=== PATIENT | female | born 1955 | race Caucasian/White ===

== ENCOUNTER 2017-05-18 10:07 | Emergency (ER) | payer MEDICAID ==
--- NOTE | 2017-05-18 10:39 | ER Document Report ---
HPI - HPI Pain Level: 2 Context: 61 yo female c/o sore throat since this morning. woke up with sore throat. grandson has cough and sore throat. no fever, no cough, mild headache. Associated Symptoms: Body/muscle aches, Nonproductive cough - mild, Headache - mild, Rhinnorhea, Sore throat. denies: Chills, Earache, Fever, Hurts to breath , Nausea, Vomiting, Sinus pain/drainage, Shortness of breath Exacerbated by: Denies Relieved by: Denies Similar symptoms previously: Yes Recently seen / treated by doctor: No - PCM [facility] - ROS Systems Reviewed and Negative: Yes All other systems reviewed and negative - CONSTITUTIONAL Constitutional: DENIES: Fever, Chills - EENT EENT: REPORTS: Sore Throat - NEURO Neurology: REPORTS: Headache - RESPIRATORY Respiratory: REPORTS: Coughing Past Medical History - General Information source: Patient - Social History Smoking Status: Never Smoker Chew tobacco use (# tins/day): No Frequency of alcohol use: None Drug Abuse: None Lives with: Family Family History: Reviewed & Not Pertinent Patient has suicidal ideation: No Patient has homicidal ideation: No Endocrine Medical History: Reports: Hx Diabetes Mellitus Type 2 Renal/ Medical History: Denies: Hx Peritoneal Dialysis Past Surgical History: Reports: Hx Breast Surgery, Hx Cholecystectomy, Hx Gynecologic Surgery - fallopian tubes removed, Hx Oral Surgery - teeth removed Vertical Provider Document - CONSTITUTIONAL Agree With Documented VS: Yes Exam Limitations: No Limitations - INFECTION CONTROL TRAVEL OUTSIDE OF THE [place] IN LAST 30 DAYS: No - HEENT HEENT: Atraumatic, PERRLA, Pharyngeal Erythema - OP mildly injected. no exudate. no edema. - NECK Neck: Normal Inspection, Supple - RESPIRATORY Respiratory: Breath Sounds Normal, No Respiratory Distress O2 Sat by Pulse Oximetry: 95 - CARDIOVASCULAR Cardiovascular: Regular Rate, Regular Rhythm - NEURO Level of Consciousness: Awake, Alert, Appropriate - DERM Integumentary: Warm, Dry, No Rash Course - Re-evaluation Re-evalutation: 05/18/17 10:38 H&P c/w simple URI. no s/s peritonsillar abscess or sepsis, no airway compromise 05/18/17 11:09 pt stable for discharge - Vital Signs Vital signs: Temp Pulse Resp BP Pulse Ox 98.8 F 98 16 126/86 H 95 05/18/17 10:12 05/18/17 10:12 05/18/17 10:12 05/18/17 10:12 05/18/17 10:12 Discharge - Discharge Clinical Impression: URI (upper respiratory infection) Qualifiers: URI type: unspecified viral URI Qualified Code(s): J06.9 - Acute upper respiratory infection, unspecified Condition: Stable Disposition: HOME, SELF-CARE Instructions: Acetaminophen, Fever ([facility]), Upper Respiratory Illness ([facility]), Viral Syndrome ([facility]) Additional Instructions: You have a viral upper respiratory illness Symptomatic support followup with primary care if symptoms persist more than 10 days
[2017-05-18 11:36] VITALS: BP 125/79
== END 2017-05-18 11:34 | disposition home or self-care (01) ==
LOC: ER 10:07
DX: J06.9 Acute upper respiratory infection, unspecified (principal); J02.9 Acute pharyngitis, unspecified; R05 Cough; M79.1 Myalgia; R51 Headache; J34.89 Other specified disorders of nose and nasal sinuses
CPT/HCPCS: 99282

== ENCOUNTER → 2017-08-11 | Outpatient (CLI) | payer MEDICAID ==
[~2017-08-11] MED LIST: REGADENOSON INJ 0.4 MG/5 ML DISP.SYRIN IV ONE
--- NOTE | 2017-08-11 18:35 | DRAGON STRESS TEST REPORT ---
INTRAVENOUS LEXISCAN CARDIOLITE STRESS TEST USING SINGLE PHOTON EMMISION COMPUTERIZED TOMOGRAPHIC. DATE OF PROCEDURE: August 11, 2017, INDICATION : Chest pain CARDIAC RISK FACTORS: Diabetes, hypertension, dyslipidemia RESTING EKG: Sinus rhythm, no baseline ST-T wave changes are noted. STRESS EKG: No significant ST segment changes noted with LexiScan bolus REASON FOR TERMINATION: Protocol. PROCEDURE REPORT: Baseline heart rate 104 beats per minute with blood pressure of 110/69. Patient had no significant complaints. Patient was bolused with Lexiscan 0.4 mg intravenously followed by saline bolus. Heart rate at 2 minutes post bolus 137 with a blood pressure of 106/58. 3 minutes post bolus heart rate 134 with blood pressure of 197/55. No significant EKG changes were noted. Patient had no significant complaints during the procedure or postprocedure. Patient injected with Aminophyllin 75 mg at 3 minutes or later after Lexiscan bolus. CONCLUSIONS: Normal EKG and hemodynamic response to IV LexiScan. NUCLEAR DATA: At rest the patient was given 12.78 millicuries of technetium 99 sestamibi injected intravenously. As per protocol rest gated SPECT images were obtained. On day of stress test, the patient was given intravenous LexiScan at a dose of 0.4 mg in 5 mL intravenously, followed by flush with normal saline. Subsequently the stress dose of 36.5 millicuries of technetium 99 sestamibi was injected intravenously. As per protocol stress gated images were obtained. NUCLEAR INTERPRETATION: Both raw and processed data were used for interpretation. Visual, qualitative, computer-generated quantitative data was used. There was good myocardial uptake of technetium compound. Motion artifact and soft tissue attenuations were noted. Increased visceral uptake was noted. There was significant visceral contamination causing difficulty in interpreting inferior wall perfusion. No definitive areas of transient perfusion defect noted, No definitive areas of fixed perfusion defect or scars noted. EKG gated imaging showed LV EF at 62 %, rest and stress gated EF similar visually. T. I D. ratio was 1.09. Lung heart ratio noted to be within normal limits 0.27. No significant extracardiac and abnormal radiotracer activities were noted. RV free wall uptake was noted to be WNL. IMPRESSION: Also refer to comments under nuclear interpretation. Also test results needs to be interpreted in the context of pretest probability. 1. No definitive areas of transient perfusion defect noted. 2. No definite fixed defect noted. Mild fixed decreased uptake/count noted in the basal inferior wall in computer-generated images, however this is felt to be artifactual and mostly related to diaphragmatic attenuation artifact and contamination from increased visceral uptake. 3. EKG gated imaging shows left ventricular ejection fraction of approx. 62 %. 4. Clinical correlation requested as occasionally single vessel disease or balanced ischemia could be missed. In approximately 10% of the cases Lexiscan may not cause adequate vasodilatory stress. RECOMMENDATIONS: Aggressive risk factor modification and medical management. Further evaluation may be needed if continued symptoms or other high risk indicators are noted on clinical evaluation. Close cardiology follow-up is also recommended. Clinical correlation with echocardiogram derived ejection fraction. Inability to exercise by itself can lead to increased cardiovascular event risks. Consider cardiology consultation and or follow-up if clinically indicated. I am available for cardiology evaluation and consultation if requested by the learning disabilities teacher, unless patient already has a correspondence specialist. MARCELO
== END ==
LOC: RAD 08:39
PROVIDERS: ATTEND Family Medicine
DX: R07.9 Chest pain, unspecified (principal); E11.9 Type 2 diabetes mellitus without complications; I10 Essential (primary) hypertension; E78.5 Hyperlipidemia, unspecified
CPT/HCPCS: 93017; 78452; A9500; J2785; Q9969

== ENCOUNTER 2018-03-26 16:15 | Emergency (ER) | payer MEDICAID ==
[2018-03-26 18:59] LABS: ABSOLUTE BASOPHILS # (AUTO) 0.1 10^3/uL (0.0-0.2); ABSOLUTE EOSINOPHILS # (AUTO) 0.2 10^3/uL (0.0-0.6); ABSOLUTE LYMPHOCYTES (AUTO) 2.3 10^3/uL (0.5-4.7); ABSOLUTE MONOCYTES (AUTO) 0.6 10^3/uL (0.1-1.4); ABSOLUTE NEUT (AUTO) 4.2 10^3/uL (1.7-8.2); BASOPHILS % (AUTO) 0.8 % (0-2); EOSINOPHILS % (AUTO) 2.8 % (0-6); HEMOGLOBIN 15.9 g/dL (12.0-15.5); LYMPHOCYTES % (AUTO) 31.7 % (13-45); MEAN CORPUSCULAR HGB CONC 33.9 g/dL (32.0-36.0); MEAN CORPUSCULAR VOLUME 91 fl (80-97); MONOCYTES % (AUTO) 7.6 % (3-13); PLATELET COUNT 170 10^3/uL (150-450); RED BLOOD COUNT 5.14 10^6/uL (3.72-5.28); RED CELL DISTRIBUTION WIDTH 13.5 % (11.5-14.0); SEGMENTED NEUTROPHILS % (AUTO) 57.1 % (42-78); TOTAL CELLS COUNTED % (AUTO) 100 %; WHITE BLOOD COUNT 7.3 10^3/uL (4.0-10.5)
[2018-03-26 19:06] LABS: ALANINE AMINOTRANSFERASE 96 U/L (9-52); ALBUMIN 3.8 g/dL (3.5-5.0); ALKALINE PHOSPHATASE 69 U/L (38-126); ASPARTATE AMINO TRANSFERASE 206 U/L (14-36); BILIRUBIN,DIRECT 0.6 mg/dL (0.0-0.4); BLOOD UREA NITROGEN 29 mg/dL (7-20); CALCIUM 9.6 mg/dL (8.4-10.2); CREATINE KINASE 167 U/L (30-135); GLUCOSE 108 mg/dL (75-110); POTASSIUM 4.5 mmol/L (3.6-5.0); TOTAL PROTEIN 6.5 g/dL (6.3-8.2)
[2018-03-26 19:11] LABS: ANION GAP 5 (5-19); CARBON DIOXIDE 29 mmol/L (22-30); CHLORIDE 106 mmol/L (98-107); SODIUM 139.6 mmol/L (137-145)
[2018-03-26 19:24] LABS: TROPONIN I < 0.012 ng/mL
[2018-03-26] MEDS ORDERED: ONDANSETRON HCL INJ/PF 4 MG/2 ML SDV IV ONE (19:25)
[2018-03-26] MEDS ORDERED: FENTANYL CITRATE INJ/PF 100 MCG/2 ML AMPUL IV ONE (19:25)
--- NOTE | 2018-03-26 19:34 | RADIOLOGY REPORT (SQ) ---
EXAM DESCRIPTION: CHEST SINGLE VIEW COMPLETED DATE/TIME: 03/26/2018 7:15 pm REASON FOR STUDY: chest pain COMPARISON: None. NUMBER OF VIEWS: One view. TECHNIQUE: Single frontal radiographic view of the chest acquired. LIMITATIONS: None. FINDINGS: LUNGS AND PLEURA: No opacities, masses or pneumothorax. No pleural effusion. MEDIASTINUM AND HILAR STRUCTURES: No masses. Contour normal. HEART AND VASCULAR STRUCTURES: Heart normal in size. Normal vasculature. BONES: No acute findings. HARDWARE: None in the chest. OTHER: No other significant finding. IMPRESSION: NO SIGNIFICANT RADIOGRAPHIC FINDING IN THE CHEST. TECHNICAL DOCUMENTATION: JOB ID: [id number] [employer]- All Rights Reserved Reading location - IP/workstation name: [email or web address]
--- NOTE | 2018-03-26 19:38 | ER Document Report ---
ED General <DALLASAMRIK Azar - Last Filed: 03/27/18 01:40> - General Mode of Arrival: Ambulatory Information source: Patient, [facility] Records TRAVEL OUTSIDE OF THE [place] IN LAST 30 DAYS: No - HPI Onset: This morning Onset/Duration: Sudden, Persistent Quality of pain: Other - Chest tightness Severity: Mild Associated symptoms: Chest pain. denies: Diarrhea, Fever, Nausea, Vomiting, Shortness of breath, Sweating Exacerbated by: Denies Relieved by: Denies Similar symptoms previously: No Recently seen / treated by doctor: No <OMAR BOOGIE - Last Filed: 03/27/18 02:21> - General Chief Complaint: Chest Tightness Stated Complaint: CHEST TIGHTNESS Time Seen by Provider: 03/26/18 19:21 Notes: 62-year-old female with history of breast cancer, reportedly in remission, diabetes presents with complaint of chest pain that started 8 hours prior to arrival while she was at [employer]. Patient describes the pain as tightness that has been constant since that time. She denies any radiation of pain, associated nausea, diaphoresis, palpitations or lightheadedness. Patient denies recent i llness, vomiting, abdominal pain. Surgical history includes mastectomy, cholecystectomy. Patient moved here from [place]. Patient's primary care physician is Dr. Negro (OMAR BOOGIE) - Related Data Allergies/Adverse Reactions: acetaminophen [From Darvocet-N] Allergy (Verified 03/26/18 19:55) diclofenac Allergy (Verified 03/26/18 19:55) hydrocodone [From Vicodin] Allergy (Verified 03/26/18 19:53) Generalized Itching morphine Allergy (Verified 03/26/18 19:53) Migraine propoxyphene [From Darvocet-N] Allergy (Verified 03/26/18 19:55) sulfamethoxazole [From Bactrim] Allergy (Verified 03/26/18 19:53) Hives tramadol [From Ultram] Allergy (Verified 03/26/18 19:55) trimethoprim [From Bactrim] Allergy (Verified 03/26/18 19:53) Hives ibuprofen [From Motrin] Adverse Reaction (Verified 03/26/18 19:53) Chest pain IV contrast dye Allergy (Uncoded 03/26/18 19:53) Hives Past Medical History - General Information source: Patient - Social History Smoking Status: Never Smoker Chew tobacco use (# tins/day): No Frequency of alcohol use: None Drug Abuse: None Lives with: Family Family History: Reviewed & Not Pertinent Patient has suicidal ideation: No Patient has homicidal ideation: No Endocrine Medical History: Reports: Hx Diabetes Mellitus Type 2 Renal/ Medical History: Denies: Hx Peritoneal Dialysis Malignancy Medical History: Reports: Hx Breast Cancer Past Surgical History: Reports: Hx Breast Surgery, Hx Cholecystectomy, Hx Gyne cologic Surgery - fallopian tubes removed, Hx Oral Surgery - teeth removed <OMAR BOOGIE - Last Filed: 03/27/18 02:21> Review of Systems <OMAR BOOGIE - Last Filed: 03/27/18 02:21> - Review of Systems Notes: REVIEW OF SYSTEMS: CONSTITUTIONAL : Denies fever, chills, or sweats. Denies recent illness. Denies weight loss, recent hospitalizations. EENT: Denies visual changes, eye pain. Denies sore throat, oral lesions, difficulty swallowing. CARDIOVASCULAR: Denies palpitations. Denies lower extremity edema. RESPIRATORY: Denies cough. Denies shortness of breath, wheezing. GASTROINTESTINAL: Denies abdominal pain or distention. Denies nausea, vomiting, or diarrhea. Denies blood in vomitus, stools, or per rectum. Denies black, tarry stools. Denies constipation. GENITOURINARY: Denies difficulty urinating, painful urination, frequency, blood in urine, or vaginal discharge. MUSCULOSKELETAL: Denies back or neck pain or stiffness. Denies joint pain or swelling. SKIN: Denies rash, lesions or sores. HEMATOLOGIC : Denies easy bruising or bleeding. LYMPHATIC: Denies swollen glands. NEUROLOGICAL: Denies confusion or altered mental status. Denies loss of consciousness. Denies dizziness or lightheadedness. Denies headache. Denies weakness or paralysis. Denies problems difficulty with ambulation, slurred speech. Denies sensory loss, numbness, or tingling. Denies seizures. PSYCHIATRIC: Denies anxiety or stress. Denies depression, suicidal ideation, or homicidal ideation. Denies visual or auditory hallucinations. (BOOGIEOMAR) Physical Exam <OMAR BOOGIE - Last Filed: 03/27/18 02:21> - Vital signs Vitals: Temp Pulse Resp BP Pulse Ox 98.6 F 123 H 16 115/70 95 03/26/18 16:28 03/26/18 16:28 03/26/18 16:28 03/26/18 16:28 03/26/18 16:28 - Notes Notes: PHYSICAL EXAMINATION: GENERAL: Well-appearing, well-nourished and in no acute distress. HEAD: Atraumatic, normocephalic. EYES: Pupils equal round and reactive to light, extraocular movements intact, conjunctiva are normal. ENT: Nares patent, oropharynx clear without exudates. Moist mucous membranes. NECK: Normal range of motion, supple without lymphadenopathy LUNGS: Breath sounds clear to auscultation bilaterally and equal. No wheezes rales or rhonchi. HEART: Tachycardic, regular rhythm ABDOMEN: Soft, nontender, nondistended abdomen. No guarding, no rebound. No masses appreciated. Negative Woodward's, epigastrium nontender. Female : deferred Musculoskeletal: Normal range of motion, no pitting or edema. No cyanosis. NEUROLOGICAL: Cranial nerves grossly intact. Normal speech, normal gait. Elise l sensory, motor exams PSYCH: Normal mood, normal affect. SKIN: Warm, Dry, normal turgor, no rashes or lesions noted. (OMAR BOOGIE) Course - Laboratory Result Diagrams: 03/26/18 17:18 03/26/18 17:18 <AMRIK DALLAS - Last Filed: 03/27/18 01:40> - Laboratory Result Diagrams: 03/26/18 17:18 03/26/18 17:18 - Diagnostic Test Radiology reviewed: Pending - EKG Interpretation by [place] EKG shows normal: Sinus rhythm Rate: Normal Rhythm: NSR When compared to previous EKG there are: Previous EKG unavailable <OMAR BOOGIE - Last Filed: 03/27/18 02:21> - Re-evaluation Re-evalutation: Laboratory 03/26/18 03/26/18 03/26/18 17:18 17:18 17:18 WBC 7.3 RBC 5.14 Hgb 15.9 H Hct 47.0 MCV 91 MCH 31.0 MCHC 33.9 RDW 13.5 Plt Count 170 Seg Neutrophils % 57.1 Lymphocytes % 31.7 Monocytes % 7.6 Eosinophils % 2.8 Basophils % 0.8 Absolute Neutrophils 4.2 Absolute Lymphocytes 2.3 Absolute Monocytes 0.6 Absolute Eosinophils 0.2 Absolute Basophils 0.1 D-Dimer Sodium 139.6 Potassium 4.5 Chloride 106 Carbon Dioxide 29 Anion Gap 5 BUN 29 H Creatinine 0.72 Est GFR ( Amer) > 60 Est GFR (Non-Af Amer) > 60 Glucose 108 Calcium 9.6 Total Bilirubin 1.0 Direct Bilirubin 0.6 H Neonat Total Bilirubin Not Reportable Neonat Direct Bilirubin Not Reportable Neonat Indirect Bili Not Reportable AST 206 H ALT 96 H Alkaline Phosphatase 69 Creatine Kinase 167 H CK-MB (CK-2) 2.50 Troponin I < 0.012 Total Protein 6.5 Albumin 3.8 Lipase 03/26/18 03/26/18 03/26/18 17:18 21:23 21:23 WBC RBC Hgb Hct MCV MCH MCHC RDW Plt Count Seg Neutrophils % Lymphocytes % Monocytes % Eosinophils % Basophils % Absolute Neutrophils Absolute Lymphocytes Absolute Monocytes Absolute Eosinophils Absolute Basophils D-Dimer 0.33 Sodium Potassium Chloride Carbon Dioxide Anion Gap BUN Creatinine Est GFR ( Amer) Est GFR (Non-Af Amer) Glucose Calcium Total Bilirubin Direct Bilirubin Neonat Total Bilirubin Neonat Direct Bilirubin Neonat Indirect Bili AST ALT Alkaline Phosphatase Creatine Kinase CK-MB (CK-2) Troponin I < 0.012 Total Protein Albumin Lipase 1213.1 H Chest X-Ray 03/26/18 18:45 IMPRESSION: NO SIGNIFICANT RADIOGRAPHIC FINDING IN THE CHEST. Temp Pulse Resp BP Pulse Ox 97.8 F 123 H 14 114/59 L 94 03/26/18 19:53 03/26/18 16:28 03/26/18 21:46 03/26/18 21:46 03/26/18 21:46 62-year-old female with history of breast cancer, reportedly in remission, diabetes presents with complaint of chest pain that started 8 hours prior to arrival while she was at [employer]. Patient describes the pain as tightness that has been constant since that time. She denies any radiation of pain, associated nausea, diaphoresis, palpitations or lightheadedness. Patient denies recent illness, vomiting, abdominal pain. Surgical history includes mastectomy, cholecystectomy. Patient moved here from [place] and has not established primary care yet. Vital signs reviewed upon arrival and patient is afebrile, in termittently tachycardic and not hypoxic. She does not appear toxic or dehydrated. She is in no acute distress. Patient received fentanyl, GI cocktail and reports resolution of her chest tightness. CBC is without leukocytosis or anemia. CMP shows mild elevation of her liver enzymes, which the patient reports is known to her. She states that an ultrasound done in [place] showed a "spot on my liver". She states that she was supposed to get an MRI but with moving has not yet done so. Lipase is 1200. Cardiac enzymes within normal limits including delta troponin. EKG was obtained which showed the patient to be in normal sinus rhythm at a rate of 93. 03/26/18 21:56 Patient reports resolution of chest pain. Awaiting delta troponin. Patient states that she knows that she has elevated liver enzymes. She did have a workup in [place] where she used to live and she is supposed to get an MRI but has not yet done that. 03/26/18 23:10 Patient reevaluated after lipase came back at 1200. She has no epigastric abdominal pain no right upper quadrant abdominal pain no nausea, vomiting. She is pain-free now after a GI cocktail. 03/26/18 23:25 03/26/18 23:27 Spoke to surgery on-call Dr. Hunt about the patient's asymptomatic pancreatitis. He advises CT of the abdomen with IV contrast and right upper quadrant ultrasound. Patient reports a contrast allergy of itching. Patient will be premedicated with Benadryl, Solu-Medrol and Pepcid prior to her CAT scan. 03/26/18 23:28 03/26/18 23:32 03/27/18 00:25 Patient signed out to Dr. Dallas with CAT scan and ultrasound pending. (OMAR BOOGIE) - Vital Signs Vital signs: Temp Pulse Resp BP Pulse Ox 97.9 F 123 H 16 109/75 93 03/27/18 02:13 03/26/18 16:28 03/27/18 02:13 03/27/18 02:13 03/27/18 02:13 - Laboratory Laboratory results interpreted by me: 03/26/18 03/26/18 03/26/18 17:18 17:18 21:23 Hgb 15.9 H BUN 29 H Direct Bilirubin 0.6 H AST 206 H ALT 96 H Creatine Kinase 167 H Lipase 1213.1 H Discharge <DALLAS,AMRIK A - Last Filed: 03/27/18 01:40> <OMAR BOOGIE E - Last Filed: 03/27/18 02:21> - Discharge Clinical Impression: Elevated LFTs Pancreatitis Qualifiers: Chronicity: acute Pancreatitis type: unspecified pancreatitis type Acute pancreatitis complication: unspecified Qualified Code(s): K85.90 - Acute pancreatitis without necrosis or infection, unspecified Condition: Good Disposition: HOME, SELF-CARE Instructions: Pancreatitis ([facility]) Additional Instructions: Please return to the emergency department if you have any worsening, or concern of your symptoms. Please return to the emergency department if you develop chest pain, difficulty breathing, severe abdominal pain, or ongoing vomiting. Please follow-up with your primary care physician in 2-3 days and any other recommended physicians. If prescribed, take all medications as directed. If you have any questions or concerns do not hesitate to return the emergency department for evaluation. Get your MRI as recommended with Dr. Negro. Referrals: SARAHI NEGRO MD [Primary Care Provider] - Follow up in 3-5 days
[2018-03-26] MEDS ORDERED: LIDOCAINE 2% VISCOUS SOLN 20 ML UDCUP PO ONE (21:55)
[2018-03-26] MEDS ORDERED: METOCLOPRAMIDE HCL ORAL SOLN 10 MG/10 ML UDCUP PO ONE (21:55)
[2018-03-26] MEDS ORDERED: MAG HYDROX/AL HYDROX/SIMETH SUSP 30 ML UDCUP PO ONE (21:55)
[2018-03-26] MEDS ORDERED: IPRATROPIUM/ALBUTEROL 0.5-2.5 MG/3 ML AMPUL NEB ONE (21:55)
--- NOTE | 2018-03-26 22:12 | EKG REPORT ---
SEVERITY:- OTHERWISE NORMAL ECG - SINUS TACHYCARDIA : Confirmed by: Kelsey Velasquez MD 26-Mar-2018 22:12:07
--- NOTE | 2018-03-26 22:12 | EKG REPORT ---
SEVERITY:- NORMAL ECG - SINUS RHYTHM : Confirmed by: Kelsey Velasquez MD 26-Mar-2018 22:12:04
[2018-03-26] MEDS ORDERED: METHYLPREDNISOLONE INJ 125 MG/2 ML SDV IV ONE (23:18)
[2018-03-26] MEDS ORDERED: DIPHENHYDRAMINE HCL 50 MG/ML VIAL IV ONE (23:18)
[2018-03-26] MEDS ORDERED: FAMOTIDINE INJ/PF 20 MG/2 ML SDV IV ONE (23:19)
--- NOTE | 2018-03-27 00:48 | RADIOLOGY REPORT (SQ) ---
US ABDOMEN LIMITED HISTORY: Right upper quadrant pain. COMPARISON: None. TECHNIQUE: Grayscale and color Doppler imaging of the right upper quadrant was performed. FINDINGS: The liver measures 15.7 cm. The liver has normal echotexture without focal lesion identified. The main portal vein has normal hepatopedal flow. Status post cholecystectomy. Bile duct measures 5 mm. The pancreas is not well visualized due to overlying bowel gas. The right kidney measures 9.3 cm in length, without hydronephrosis. The visualized portions of the IVC and aorta are patent. IMPRESSION: 1. Status post cholecystectomy. 2. Pancreas is not well visualized due to overlying bowel gas. Correlate with same day CT scan results.
--- NOTE | 2018-03-27 01:13 | RADIOLOGY REPORT (SQ) ---
CT ABDOMEN PELVIS WITH IV CONTRAST HISTORY: Elevated lipase. COMPARISON: None. TECHNIQUE: CT scan of the abdomen and pelvis with IV contrast. This exam was performed according to our departmental dose-optimization program, which includes automated exposure control, adjustment of the mA and/or kV according to patient size and/or use of iterative reconstruction technique. FINDINGS: There are scattered areas of atelectasis at the lung bases. No pleural or pericardial effusions. The liver and spleen are unremarkable. No inflammatory stranding surrounds the pancreas. There is no peripancreatic fluid collection. There has been a prior cholecystectomy with mild intrahepatic and extra hepatic ductal dilatation. There is a 2.4 cm left adrenal nodule. The right adrenal gland is normal. The kidneys are symmetric without hydronephrosis. No ureteral or bladder stones are seen. No small bowel obstruction. . There are a few loops of small bowel which are mildly fluid-filled the lower abdomen which may represent enteritis. The appendix is not well visualized; however there are no inflammatory changes in the right lower quadrant. The abdominal aorta is normal caliber. There are no suspicious osseous lesions identified. IMPRESSION: 1. No inflammatory stranding or fluid collection is seen surrounding the pancreas. 2. Query mild enteritis.
[2018-03-27] MEDS ORDERED: RINGERS SOLUTION,LACTATED 1,000 ML IV ONE (01:23)
--- NOTE | 2018-03-27 01:26 | ER Document Report ---
Doctor's Note Notes: 03/27/18 01:23 Patient independently evaluated by myself. She is currently asymptomatic. She has no epigastric tenderness or peritoneal signs in her abdomen. Her tachycardia is improving from initial presentation however she still has a heart rate of 102. Her ultrasound and CT scan of her abdomen are relatively unremar kable. She has no peripancreatic changes consistent with her pancreatitis. She has some mild ductal dilation. I discussed her images with Dr. Hunt, general surgery, who does not feel she is requiring any surgical intervention currently. He does recommend admission to the hospital and monitoring of her lipase. I did discuss patient's images with her. She is in agreement with being admitted to the hospital for further monitoring. She was started on LR because of her n.p.o. status. Chest X-Ray 03/26/18 18:45 IMPRESSION: NO SIGNIFICANT RADIOGRAPHIC FINDING IN THE CHEST. Abdomen Ultrasound 03/26/18 23:01 IMPRESSION: 1. Status post cholecystectomy. 2. Pancreas is not well visualized due to overlying bowel gas. Correlate with same day CT scan results. Abdomen/Pelvis CT 03/26/18 23:08 IMPRESSION: 1. No inflammatory stranding or fluid collection is seen surrounding the pancreas. 2. Query mild enteritis. Laboratory 03/26/18 03/26/18 03/26/18 17:18 17:18 17:18 WBC 7.3 RBC 5.14 Hgb 15.9 H Hct 47.0 MCV 91 MCH 31.0 MCHC 33.9 RDW 13.5 Plt Count 170 Seg Neutrophils % 57.1 Lymphocytes % 31.7 Monocytes % 7.6 Eosinophils % 2.8 Basophils % 0.8 Absolute Neutrophils 4.2 Absolute Lymphocytes 2.3 Absolute Monocytes 0.6 Absolute Eosinophils 0.2 Absolute Basophils 0.1 D-Dimer Sodium 139.6 Potassium 4.5 Chloride 106 Carbon Dioxide 29 Anion Gap 5 BUN 29 H Creatinine 0.72 Est GFR ( Amer) > 60 Est GFR (Non-Af Amer) > 60 Glucose 108 Calcium 9.6 Total Bilirubin 1.0 Direct Bilirubin 0.6 H Neonat Total Bilirubin Not Reportable Neonat Direct Bilirubin Not Reportable Neonat Indirect Bili Not Reportable AST 206 H ALT 96 H Alkaline Phosphatase 69 Creatine Kinase 167 H CK-MB (CK-2) 2.50 Troponin I < 0.012 Total Protein 6.5 Albumin 3.8 Lipase 03/26/18 03/26/18 03/26/18 17:18 21:23 21:23 WBC RBC Hgb Hct MCV MCH MCHC RDW Plt Count Seg Neutrophils % Lymphocytes % Monocytes % Eosinophils % Basophils % Absolute Neutrophils Absolute Lymphocytes Absolute Monocytes Absolute Eosinophils Absolute Basophils D-Dimer 0.33 Sodium Potassium Chloride Carbon Dioxide Anion Gap BUN Creatinine Est GFR ( Amer) Est GFR (Non-Af Amer) Glucose Calcium Total Bilirubin Direct Bilirubin Neonat Total Bilirubin Neonat Direct Bilirubin Neonat Indirect Bili AST ALT Alkaline Phosphatase Creatine Kinase CK-MB (CK-2) Troponin I < 0.012 Total Protein Albumin Lipase 1213.1 H 03/27/18 01:25
[2018-03-27 02:15] VITALS: BP 109/75
== END 2018-03-27 02:23 | disposition home or self-care (01) ==
LOC: ER 16:15
DX: K85.90 Acute pancreatitis without necrosis or infection, unspecified (principal); R74.8 Abnormal levels of other serum enzymes; R07.89 Other chest pain; Z85.3 Personal history of malignant neoplasm of breast; E11.9 Type 2 diabetes mellitus without complications; R00.0 Tachycardia, unspecified; Z90.49 Acquired absence of other specified parts of digestive tract; Z88.6 Allergy status to analgesic agent; Z88.3 Allergy status to other anti-infective agents; Z88.5 Allergy status to narcotic agent; Z88.1 Allergy status to other antibiotic agents; Z91.041 Radiographic dye allergy status
CPT/HCPCS: 93005; 94640; 99285; 96361; 96374; 96375; 36415; 82553; 82550; 83690; 85025; 80053; 84484; 85379; 71045; 76705; 74177; 93010; J1200; J3010; J3490 ×3; J2930; J2405; J7120; S0028; J7620

== ENCOUNTER 2018-12-05 11:06 | Day surgery (SDC) | payer MEDICAID ==
[2018-12-05] MEDS ORDERED: PROPOFOL INJ 200 MG/20 ML VIAL IV ONE (11:56)
[2018-12-05] MEDS ORDERED: LIDOCAINE 2% INJ-PF (20 MG/ML) 10 ML AMPUL ONE (11:56)
[2018-12-05] MEDS ORDERED: PROMETHAZINE HCL INJ 25 MG/1 ML VIAL IV PRN (12:54)
[2018-12-05] MEDS ORDERED: ONDANSETRON HCL INJ/PF 4 MG/2 ML SDV IV PRN (12:54)
[2018-12-05] MEDS ORDERED: DIPHENHYDRAMINE HCL 50 MG/ML VIAL IV PRN (12:54)
--- NOTE | 2018-12-05 14:48 | Operative Report ---
Operative Report DATE OF SURGERY: 12/05/18 Operative Report: The risks, benefits and alternatives of the procedure including the risk of bleeding, perforation requiring surgery have been explained to the patient in detail and informed consent has been obtained. The patient has taken back to the operating room and placed in a left, lateral decubital position. Timeout was called. Propofol medication is administered. Rectal examination is done which did not reveal any masses, tears or fissures. An Olympus videoscope was introduced into the patient's rectum. The scope was then carefully advanced all the way to the cecum. The cecum was identified by the appendiceal office. The scope was then sequentially pulled back via the rest segments of the colon including the ascending colon, hepatic flexure, transverse colon, splenic flexure, descending colon and finally into the rectosigmoid portions of the colon. Retroflexion maneuvers performed. PREOPERATIVE DIAGNOSIS: Surveillance colonoscopy due to personal history of polyps POSTOPERATIVE DIAGNOSIS: Small lesion noted on the right-hand side of the colon question possible small polyp versus area of inflammation I went ahead to take a little biopsy OPERATION: Colonoscopy with biopsy SURGEON: ZACHARY SOSA ANESTHESIA: LMAC TISSUE REMOVED OR ALTERED: As noted above COMPLICATIONS: None. ESTIMATED BLOOD LOSS: None. INTRAOPERATIVE FINDINGS: As noted above. PROCEDURE: Patient tolerated the procedure well. No immediate postprocedure complications are noted. Patient is discharged in good condition. Discharge date 12/05/2018. Discharge diet: Regular. Discharge activity: Regular. 2 to 3-week follow-up to discuss findings. Patient is instructed to call the office or proceed to the emergency room should there be any further problems or questions. Wait on the pathology.
[2018-12-05 16:13] VITALS: BP 108/64
== END 2018-12-05 15:40 | disposition home or self-care (01) ==
LOC: OROUT 11:06
PROVIDERS: ATTEND Internal Medicine Gastroenterology
DX: Z12.11 Encounter for screening for malignant neoplasm of colon (principal); Z86.010 Personal history of colon polyps; K63.9 Disease of intestine, unspecified; I20.9 Angina pectoris, unspecified; E11.9 Type 2 diabetes mellitus without complications; D64.9 Anemia, unspecified
CPT/HCPCS: 45380; 82962; 88305 ×2; 00811; J2704; J3490; 811